=== PATIENT | male | born 1950 | race Caucasian/White ===

== ENCOUNTER 2021-09-14 07:28 | Day surgery (SDC) | payer MEDICARE, BC ==
[2021-09-14] MEDS: Lactated Ringers 1,000 ML IV SCH ×2 (07:24→10:30)
[~2021-09-14 07:28] MED LIST: Acetaminophen 325 MG Tab PO SCH; Lidocaine 1%/Sod Bicarbonate in NS 8.4% 1 ML Syringe IDERM PRN; Pregabalin 25 MG Cap PO SCH; Sodium Chloride 0.9% 10 ML Syringe FLUSH PRN; Sodium Chloride 0.9% 10 ML Syringe FLUSH SCH; oxyCODONE ER 10 MG TAB.ER PO SCH
[2021-09-14] MEDS ORDERED: Propofol 200 MG/20 ML SDV ONE ×2 (07:51→09:01)
[2021-09-14] MEDS ORDERED: Midazolam 1 MG/ML 2 ML SDV ONE (07:51)
[2021-09-14] MEDS ORDERED: Lidocaine 1% 4 ML ONE (07:52)
[2021-09-14] MEDS ORDERED: Ondansetron 4 MG/2 ML SDV ONE (07:52)
[2021-09-14] MEDS ORDERED: Bupivacaine 0.75% 30 ML SDV ONE (08:37)
[2021-09-14] MEDS ORDERED: Vancomycin 2 GM in Sodium Chloride 0.9% 500 ML IV ONE (08:45)
[2021-09-14] MEDS ORDERED: ePHEDrine 50 MG/ML SDV ONE (09:03)
[2021-09-14] MEDS ORDERED: Lactated Ringers 1,000 ML ONE (09:07)
[2021-09-14] MEDS: Morphine 8 MG, EPINEPHrine 0.3 MG, Ketorolac 30 MG, Sodium Chloride 0.9% 7.9 ML PRN ×8 (09:35→09:51)
[2021-09-14] MEDS: Vancomycin 1 GM SDV ONE ×2 (09:35→09:51)
[2021-09-14] MEDS ORDERED: HYDROmorphone 0.5 MG/0.5 ML Syringe IVPUSH PRN (10:40)
[2021-09-14] MEDS ORDERED: fentaNYL 100 MCG/2 ML SDV IVPUSH PRN (10:40)
[2021-09-14] MEDS ORDERED: Ondansetron 4 MG/2 ML SDV IVPUSH PRN (10:40)
[2021-09-14] MEDS ORDERED: oxyCODONE 5 MG Tab PO PRN (13:57)
== END 2021-09-14 14:54 | disposition home or self-care (01) ==
LOC: JD.SDS 07:28
PROVIDERS: ATTEND Orthopaedic Surgery
DX: M16.11 Unilateral primary osteoarthritis, right hip (principal); I25.10 Atherosclerotic heart disease of native coronary artery without angina pectoris; I10 Essential (primary) hypertension; E66.01 Morbid (severe) obesity due to excess calories; E78.00 Pure hypercholesterolemia, unspecified; F17.210 Nicotine dependence, cigarettes, uncomplicated; E03.9 Hypothyroidism, unspecified; Z98.890 Other specified postprocedural states; Z88.8 Allergy status to other drugs, medicaments and biological substances; Z88.0 Allergy status to penicillin; Z79.899 Other long term (current) drug therapy
CPT/HCPCS: 27130; 36415; 73501; 86850; 86900; 86901; 97110; 97116; 97161; A9270; C1713; C1776; J0171; J1885; J2250; J2270; J2370; J2405; J2704; J3370; J3490; J7040; J7120; 01214; 99100